=== PATIENT | female | born 1995 | race Caucasian/White ===

== ENCOUNTER 2021-04-12 15:56 | Emergency (ER) | payer MEDICAID ==
[2021-04-12] MEDS ORDERED: Sodium Chloride 0.9% 2.5 ML Syringe FLUSH PRN (18:02)
[2021-04-12] MEDS ORDERED: Sodium Chloride 0.9% 10 ML Syringe FLUSH PRN (18:02)
[2021-04-12] MEDS ORDERED: Ondansetron 4 MG/2 ML SDV IVPUSH ONE (18:03)
[2021-04-12] MEDS ORDERED: Sodium Chloride 0.9% 1,000 ML IV ONE (18:03)
--- NOTE | 2021-04-12 18:04 | EDM.PDOC ---
ED HPI GENERAL MEDICAL PROBLEM - General Chief Complaint: Respiratory Problem Stated Complaint: SOB, CHEST TIGHTNESS Time Seen by Provider: 04/12/21 17:48 Source of Information: Reports: Patient History Limitations: Reports: No Limitations - History of Present Illness INITIAL COMMENTS - FREE TEXT/NARRATIVE: HISTORY AND PHYSICAL: History of present illness: The patient is a 26-year-old female who is 34 weeks and positive with COVID-19. The patient was diagnosed on Wednesday with COVID-19. She has been taken nauseated. This afternoon she began to experience some chest tightness and is concerned that as to her unborn child. The patient states she has a low- lying placenta. The patient states she called her JOURNEYMAN PAINTER on-call and advised her to come to the emergency department. Patient denies any fever, chills, headache, change in vision, syncope or near syncope. Denies any chest pain, back pain, shortness of breath or cough. Denies any abdominal pain, nausea, vomiting, diarrhea, constipation or dysuria. Has not noted any blood in urine or stool. Patient has been eating and drinking appropriately. Review of systems: As per history of present illness and below otherwise all systems reviewed and negative. Past medical history: As per history of present illness and as reviewed below otherwise noncontributory. Surgical history: As per history of present illness and as reviewed below otherwise noncontributory. Social history: See social history for further information Family history: As per history of present illness and as reviewed below otherwise noncontributory. Physical exam: General: Well developed and well nourished. Alert and orientated x 3. Nontoxic in appearance and in no acute distress. Vital signs are stable and have been reviewed by me. Nursing notes were reviewed. HEENT: Atraumatic, normocephalic, pupils equal and reactive bilaterally, negative for conjunctival pallor or scleral icterus, mucous membranes moist, TMs normal bilaterally, throat clear, neck supple, nontender, trachea midline. No drooling or trismus noted. No meningeal signs. No hot potato voice noted. Lungs: Clear to auscultation bilaterally. No wheezes, rales, or rhonchi. Chest nontender. Normal work of breathing, no accessory muscles used. Heart: S1S2, regular rate and rhythm without overt murmur, gallops, or rubs. No JVD. No peripheral edema Abdomen: Soft, nondistended, nontender. Normoactive bowel sounds. Negative for masses or costovertebral tenderness. Skin: Intact, warm, dry. No lesions or rashes noted. Hematologic: No petechiae or purpra. Mucosa appropriate color and normal nail bed color and refill. Extremities: Atraumatic, moves all extremities per self without difficulty or deficits, negative for cords or calf pain. Neurovascular unremarkable. Neuro: Awake, alert, oriented. Cranial nerves II through XII unremarkable. Cerebellum unremarkable. Motor and sensory unremarkable throughout. Exam nonfocal. Psychiatric: Mood and affect are appropriate. Normal thought process. Answering questions appropriately. Notes: *This patient was seen and evaluated during the 2019 SARS-CoV-2 novel coronavirus pandemic period. Community viral transmission is ongoing at time of this encounter and the emergency department is operating under pandemic response procedures. As stated above the patient is a 26-year-old female who presents to the emergency department with complaints of fatigue and nausea since Wednesday. Patient is 34 weeks and was tested on Wednesday and found to be COVID-19 positive. She contacted her SYNTHETIC FILAMENT SPINNER who advised her to seek treatment in the emergency department. The patient states that movement has been normal. After examination I will order labs, in which x-ray. I will treat the patient with IV fluids. The patient is agreeable with this plan. The patient's chest x-ray. Impression: No acute cardiopulmonary process. I spoke with Dr. Skelton at [facility] regarding COVID-19 treatment for the patient. advised monoclonal antibodies. I conveyed this to the patient and she was going to think about it. The patient has agreed to the monoclonal antibodies. I have given the patient a fact sheet on the monoclonal antibodies. I have discussed the benefits with the patient. Obtain consent for the medical infusion. I have faxed to the walk-in clinic. I have talked with the patient about today's findings, in addition to providing specific details for plan of care. Reassessment at the time of disposition demonstrates that the patient is in no acute distress. The patient is stable for discharge, counseling was provided and we discussed in great detail signs and symptoms that would prompt them to return to the Emergency Department. Medication, follow up and supportive care measures were reviewed and discussed. Voices understanding and is agreeable to plan of care. Denies any further questions or concerns at this time. Diagnostics: CBC, CMP chest x-ray Therapeutics: IV fluids Impression: COVID-19 Plan: 1. You were evaluated today on an emergent basis. Your complaints of fatigue, and nausea was evaluated with a Covid 19 swab and it was positive. I spoke w ith the on-call SYNTHETIC FILAMENT SPINNER regarding the treatment for COVID-19 for you. Spoke to the SYNTHETIC FILAMENT SPINNER regarding your urine results and they stated they did not feel like this needed to be treated. They would like for you to take the monoclonal antibodies. I have sent the prescription for the outpatient to call you on Wednesday. I gave you the patient fax sheet and you gave your consent for this. As we talked about please treat your symptoms. Get plenty of fluids and food. Return to the emergency room if you start to get short of breath. Make sure that you get your portable oxygen saturation monitor. And just keep an eye on it. 2. You can alternate Tylenol and ibuprofen as needed for pain and fever management. 3. We encourage you to follow up with your primary care provider and/or recommended specialist in the next few days for re-evaluation and further care/management. 4. If your symptoms should worsen, new symptoms develop or any of the signs and symptoms we discussed should arise please return to the emergency room or call 911 (if needed). 5. Your COVID-19 screening is positive. That means you do have the coronavirus and you are considered contagious. Your vital signs and oxygen saturation are well enough that you were able to monitor your symptoms at home. Continue to monitor for trouble breathing, new confusion or inability to arouse, bluish lips or face or any of the other symptoms we discussed -if this occurs please return to the emergency room. 6. Please self quarantine until cleared by [facility] Department. Inform any persons that you have been in contact with since you started becoming symptomatic that you have tested positive; they should be made aware and take the appropriate steps as needed. 7. You can take NyQuil during the evening to help get a restful night sleep. May alternate Tylenol and ibuprofen as needed for pain and fever management. 8. The [facility] health department will be calling you and following up with you. The [place] COVID 19 Hotline phone number , They are open Wednesday - Wednesday 7am - 7pm. Follow up with your primary care provider for re-evaluation and re-testing after the 10 day quarantine and discuss when you should be seen. Definitive disposition and diagnosis as appropriate pending reevaluation and review of above. - Related Data Allergies Allergy/AdvReac Type Severity Reaction Status Date / Time Penicillins Allergy Hives Verified 04/12/21 16:50 Past Medical History - Past Health History Medical/Surgical History: Denies Medical/Surgical History - Infectious Disease History Infectious Disease History: Reports: None Social & Family History - Family History Family Medical History: No Pertinent Family History - Tobacco Use Tobacco Use Status *Q: Never Tobacco User Second Hand Smoke Exposure: No - Caffeine Use Caffeine Use: Reports: None, Coffee - Recreational Drug Use Recreational Drug Use: No ED ROS GENERAL - Review of Systems Review Of Systems: Comprehensive ROS is negative, except as noted in HPI. ED EXAM, GENERAL - Physical Exam Exam: See Below (See dictation) Course - Vital Signs Last Recorded V/S: Last Vital Signs Temp 97.9 F 04/12/21 19:58 Pulse 111 H 04/12/21 19:58 Resp 16 04/12/21 19:58 BP 143/90 H 04/12/21 19:58 Pulse Ox 100 04/12/21 19:58 - Orders/Labs/Meds Labs: Laboratory Tests 04/12/21 04/12/21 04/12/21 Range/Units 16:44 17:50 18:20 WBC 9.53 (4.0-11.0) K/uL RBC 4.35 (4.30-5.90) M/uL Hgb 11.2 L (12.0-16.0) g/dL Hct 33.8 L (36.0-46.0) % MCV 77.7 L (80.0-98.0) fL MCH 25.7 L (27.0-32.0) pg MCHC 33.1 (31.0-37.0) g/dL RDW Std Deviation 38.9 (28.0-62.0) fl RDW Coeff of Jg 14 (11.0-15.0) % Plt Count 181 (150-400) K/uL MPV 11.20 (7.40-12.00) fL Neut % (Auto) 85.9 H (48.0-80.0) % Lymph % (Auto) 7.0 L (16.0-40.0) % [place] % (Auto) 6.6 (0.0-15.0) % Eos % (Auto) 0.4 (0.0-7.0) % Baso % (Auto) 0.1 (0.0-1.5) % Neut # (Auto) 8.2 H (1.4-5.7) K/uL Lymph # (Auto) 0.7 (0.6-2.4) K/uL [place] # (Auto) 0.6 (0.0-0.8) K/uL Eos # (Auto) 0.0 (0.0-0.7) K/uL Baso # (Auto) 0.0 (0.0-0.1) K/uL Nucleated RBC % 0.0 /100WBC Nucleated RBCs # 0 K/uL Sodium (136-145) mmol/L Potassium (3.5-5.1) mmol/L Chloride (98-107) mmol/L Carbon Dioxide (21.0-32.0) mmol/L BUN (7.0-18.0) mg/dL Creatinine (0.6-1.0) mg/dL Est Cr Clr Drug Dosing mL/min Estimated GFR (MDRD) ml/min Glucose (74-106) mg/dL Calcium (8.5-10.1) mg/dL Total Bilirubin (0.2-1.0) mg/dL AST (15-37) IU/L ALT (14-63) IU/L Alkaline Phosphatase (46-116) U/L Total Protein (6.4-8.2) g/dL Albumin (3.4-5.0) g/dL Globulin (2.6-4.0) g/dL Albumin/Globulin Ratio (0.9-1.6) Urine Color YELLOW Urine Appearance HAZY Urine pH 7.0 (5.0-8.0) Ur Specific Blossom 1.010 (1.001-1.035) Urine Protein NEGATIVE (NEGATIVE) mg/dL Urine Glucose (UA) NEGATIVE (NEGATIVE) mg/dL Urine Ketones NEGATIVE (NEGATIVE) mg/dL Urine Occult Blood NEGATIVE (NEGATIVE) Urine Nitrite NEGATIVE (NEGATIVE) Urine Bilirubin NEGATIVE (NEGATIVE) Urine Urobilinogen 0.2 (<2.0) EU/dL Ur Leukocyte Esterase TRACE H (NEGATIVE) Urine RBC 0-2 (0-2/HPF) Urine WBC 2-4 (0-5/HPF) Ur Epithelial Cells FEW (NONE-FEW) Urine Bacteria 1+ H (NEGATIVE) Urine Mucus LIGHT (NONE-MOD) SARS-CoV-2 RNA (KEISHA) POSITIVE H (NEGATIVE) 04/12/21 Range/Units 18:20 WBC (4.0-11.0) K/uL RBC (4.30-5.90) M/uL Hgb (12.0-16.0) g/dL Hct (36.0-46.0) % MCV (80.0-98.0) fL MCH (27.0-32.0) pg MCHC (31.0-37.0) g/dL RDW Std Deviation (28.0-62.0) fl RDW Coeff of Jg (11.0-15.0) % Plt Count (150-400) K/uL MPV (7.40-12.00) fL Neut % (Auto) (48.0-80.0) % Lymph % (Auto) (16.0-40.0) % [place] % (Auto) (0.0-15.0) % Eos % (Auto) (0.0-7.0) % Baso % (Auto) (0.0-1.5) % Neut # (Auto) (1.4-5.7) K/uL Lymph # (Auto) (0.6-2.4) K/uL [place] # (Auto) (0.0-0.8) K/uL Eos # (Auto) (0.0-0.7) K/uL Baso # (Auto) (0.0-0.1) K/uL Nucleated RBC % /100WBC Nucleated RBCs # K/uL Sodium 136 (136-145) mmol/L Potassium 3.7 (3.5-5.1) mmol/L Chloride 101 (98-107) mmol/L Carbon Dioxide 23.5 (21.0-32.0) mmol/L BUN 6 L (7.0-18.0) mg/dL Creatinine 0.6 (0.6-1.0) mg/dL Est Cr Clr Drug Dosing 147.19 mL/min Estimated GFR (MDRD) > 60.0 ml/min Glucose 77 (74-106) mg/dL Calcium 8.3 L (8.5-10.1) mg/dL Total Bilirubin 0.3 (0.2-1.0) mg/dL AST 31 (15-37) IU/L ALT 66 H (14-63) IU/L Alkaline Phosphatase 136 H (46-116) U/L Total Protein 6.6 (6.4-8.2) g/dL Albumin 2.5 L (3.4-5.0) g/dL Globulin 4.1 H (2.6-4.0) g/dL Albumin/Globulin Ratio 0.6 L (0.9-1.6) Urine Color Urine Appearance Urine pH (5.0-8.0) Ur Specific Blossom (1.001-1.035) Urine Protein (NEGATIVE) mg/dL Urine Glucose (UA) (NEGATIVE) mg/dL Urine Ketones (NEGATIVE) mg/dL Urine Occult Blood (NEGATIVE) Urine Nitrite (NEGATIVE) Urine Bilirubin (NEGATIVE) Urine Urobilinogen (<2.0) EU/dL Ur Leukocyte Esterase (NEGATIVE) Urine RBC (0-2/HPF) Urine WBC (0-5/HPF) Ur Epithelial Cells (NONE-FEW) Urine Bacteria (NEGATIVE) Urine Mucus (NONE-MOD) SARS-CoV-2 RNA (KEISAH) (NEGATIVE) Meds: Medications Discontinued Medications Generic Name Dose Route Start Last Admin Trade Name Freq PRN Reason Stop Dose Admin Sodium Chloride 1,000 mls @ 999 mls/hr 04/12/21 18:03 04/12/21 18:24 Normal Saline IV 04/12/21 19:03 999 mls/hr .BOLUS ONE Administration Ondansetron HCl 4 mg 04/12/21 18:03 04/12/21 18:27 Ondansetron 4 Mg/2 Ml Sdv IVPUSH 04/12/21 18:04 Not Given ONETIME ONE Sodium Chloride 10 ml 04/12/21 18:02 Sodium Chloride 0.9% 10 Ml Syringe FLUSH ASDIRECTED PRN Keep Vein Open Sodium Chloride 2.5 ml 04/12/21 18:02 Sodium Chloride 0.9% 2.5 Ml Syringe FLUSH ASDIRECTED PRN Keep Vein Open Departure - Departure Time of Disposition: 19:33 Disposition: Home, Self-Care 01 Condition: Good Clinical Impression: COVID-19 - Discharge Information *PRESCRIPTION DRUG MONITORING PROGRAM REVIEWED*: Not Applicable *COPY OF PRESCRIPTION DRUG MONITORING REPORT IN PATIENT LICO: Not Applicable Instructions: Caring for Your Baby if You Have COVID-19 - CDC (07/29/2020), COVID-19: What to Do If You Are Sick- [facility] (09/18/2020) Referrals: Kristine Naranjo MD [Primary Care Provider] - Forms: ED Department Discharge Additional Instructions: The following information is given to patients seen in the emergency department who are being discharged to home. This information is to outline your options for follow-up care. We provide all patients seen in our emergency department with a follow-up referral. The need for follow-up, as well as the timing and circumstances, are variable depending upon the specifics of your emergency department visit. If you don't have a primary care physician on staff, we will provide you with a referral. We always advise you to contact your personal physician following an emergency department visit to inform them of the circumstance of the visit and for follow-up with them and/or the need for any referrals to a consulting specialist. The emergency department will also refer you to a specialist when appropriate. This referral assures that you have the opportunity for follow-up care with a specialist. All of these measure are taken in an effort to provide you with optimal care, which includes your follow-up. Under all circumstances we always encourage you to contact your private physician who remains a resource for coordinating your care. When calling for follow-up care, please make the office aware that this follow-up is from your recent emergency room visit. If for any reason you are refused follow-up, please contact the [facility] Emergency Department at and asked to speak to the emergency department charge nurse. [facility] - Primary Care [address] [place] [id number] [facility] [address] [place] [id number] Plan: 1. You were evaluated today on an emergent basis. Your complaints of fatigue, and nausea was evaluated with a Covid 19 swab and it was positive. I spoke with the on-call SYNTHETIC FILAMENT SPINNER regarding the treatment for COVID-19 for you. Spoke to the SYNTHETIC FILAMENT SPINNER regarding your urine results and they stated they did not feel like this needed to be treated. They would like for you to take the monoclonal antibodies. I have sent the prescription for the outpatient to call you on Wednesday. I gave you the patient fax sheet and you gave your consent for this. As we talked about please treat your symptoms. Get plenty of fluids and food. Return to the emergency room if you start to get short of breath. Make sure that you get your portable oxygen saturation monitor. And just keep an eye on it. 2. You can alternate Tylenol and ibuprofen as needed for pain and fever management. 3. We encourage you to follow up with your primary care provider and/or recommended specialist in the next few days for re-evaluation and further care/management. 4. If your symptoms should worsen, new symptoms develop or any of the signs and symptoms we discussed should arise please return to the emergency room or call 911 (if needed). 5. Your COVID-19 screening is positive. That means you do have the coronavirus and you are considered contagious. Your vital signs and oxygen saturation are well enough that you were able to monitor your symptoms at home. Continue to monitor for trouble breathing, new confusion or inability to arouse, bluish lips or face or any of the other symptoms we discussed -if this occurs please return to the emergency room. 6. Please self quarantine until cleared by [facility]. Inform any persons that you have been in contact with since you started becoming symptomatic that you have tested positive; they should be made aware and take the appropriate steps as needed. 7. You can take NyQuil during the evening to help get a restful night sleep. May alternate Tylenol and ibuprofen as needed for pain and fever management. 8. The [facility] health department will be calling you and following up with you. The [place] COVID 19 Hotline phone number , They are open Wednesday - Wednesday 7am - 7pm. Follow up with your primary care provider for re-evaluation and re-testing after the 10 day quarantine and discuss when you should be seen.
[2021-04-12 18:47] LABS: BLOOD UREA NITROGEN,BUN 6 mg/dL (7.0-18.0); CARBON DIOXIDE,CO2 23.5 mmol/L (21.0-32.0); CHLORIDE,CL 101 mmol/L (98-107); GLUCOSE RANDOM 77 mg/dL (74-106); POTASSIUM,K 3.7 mmol/L (3.5-5.1); SODIUM,NA 136 mmol/L (136-145)
--- NOTE | 2021-04-12 18:55 | CR ---
Indication: COVID positive. Technique: AP portable view of the chest. Comparison: None Findings: Heart normal size. The lungs are clear. No infiltrate, pleural effusion, or pneumothorax is identified. Impression: No acute cardiopulmonary process Dictated by Summer Walls MD @ 04/12/2021 6:53:13 PM (Electronically Signed)
--- NOTE | 2021-04-15 12:05 | PCM.EKG ---
#1 Interpretation EKG Interpretation Comments: EKG performed 04/12/2021 at 16:47 hours Sinus rhythm, Rate 97, W[place] 122 axis -20, QRS leftward axis and low voltage , ST and T normal, impression no acute abnromality
== END 2021-04-12 20:00 | disposition home or self-care (01) ==
LOC: MW.ED 15:56
DX: O98.513 Other viral diseases complicating pregnancy, third trimester (principal); U07.1 COVID-19; Z3A.34 34 weeks gestation of pregnancy; Z88.0 Allergy status to penicillin
CPT/HCPCS: 36415; 71045; 80053; 81001; 85025; 87635; 93005; 99285; J7030; U0002

== ENCOUNTER 2021-05-19 08:01 | Inpatient (IN) | payer MEDICAID ==
[~2021-05-19 08:01] MED LIST: Acetaminophen/oxyCODONE 325-5 MG Tab PO PRN; Albuterol 0.083% 2.5 MG/3 ML Neb Soln NEB PRN; HYDROmorphone 1 MG/ML Syringe IVPUSH PRN; Metoclopramide 10 MG/2 ML SDV IVPUSH PRN; Morphine 2 MG/ML SYRINGE IVPUSH PRN; Naloxone 0.4 MG/ML SDV IVPUSH PRN; Ondansetron 4 MG/2 ML SDV IVPUSH PRN; diphenhydrAMINE 50 MG/ML SDV IVPUSH PRN; fentaNYL 100 MCG/2 ML SDV IVPUSH PRN
[2021-05-19] MEDS ORDERED: Dexamethasone 4 MG/ML 5 ML MDV ONE (08:39)
[2021-05-19] MEDS ORDERED: Oxytocin 10 Units/1 ML SDV ONE (08:39)
[2021-05-19] MEDS ORDERED: Ondansetron 4 MG/2 ML SDV ONE ×2 (08:39→09:53)
[2021-05-19] MEDS ORDERED: fentaNYL 100 MCG/2 ML SDV ONE (08:40)
[2021-05-19] MEDS ORDERED: Morphine PF 10 MG/10 ML SDV ONE (08:40)
[2021-05-19] MEDS ORDERED: Ropivacaine 0.5% 5 MG/ML 30 ML SDV ONE (08:53)
[2021-05-19] MEDS ORDERED: Citric Acid/Sodium Citrate Solution 30 ML Cup PO ONE (09:01)
[2021-05-19] MEDS ORDERED: Sodium Chloride 0.9% 10 ML Syringe FLUSH PRN (09:01)
[2021-05-19] MEDS ORDERED: Sodium Chloride 0.9% 20 ML SDV IV PRN (09:01)
[2021-05-19] MEDS ORDERED: Sodium Chloride 0.9% 2.5 ML Syringe FLUSH PRN (09:01)
--- NOTE | 2021-05-19 09:12 | PCM.PREANE ---
Preanesthetic Assessment - Anesthesia/Transfusion/Family Hx Anesthesia History: Prior Anesthesia Without Reaction Transfusion History: No Prior Transfusion(s) - Review of Systems General: No Symptoms Pulmonary: No Symptoms Cardiovascular: No Symptoms Gastrointestinal: No Symptoms Neurological: No Symptoms Other: Reports: None - Physical Assessment NPO Status Date: 05/18/21 NPO Status Time: 23:30 Height: 5 ft 9 in Weight: 133.356 kg ASA Class: 3 Mental Status: Alert & Oriented x3 Airway Class: Mallampati = 2 Dentition: Reports: Normal Dentition Thyro-Mental Finger Breadths: 3 Mouth Opening Finger Breadths: 3 ROM/Head Extension: Full Lungs: Clear to Auscultation, Normal Respiratory Effort Cardiovascular: Regular Rate, Regular Rhythm - Lab Values: Laboratory Last Values WBC 12.77 K/uL (4.0-11.0) H 05/16/21 10:59 RBC 4.40 M/uL (4.30-5.90) 05/16/21 10:59 Hgb 11.2 g/dL (12.0-16.0) L 05/16/21 10:59 Hct 34.0 % (36.0-46.0) L 05/16/21 10:59 MCV 77.3 fL (80.0-98.0) L 05/16/21 10:59 MCH 25.5 pg (27.0-32.0) L 05/16/21 10:59 MCHC 32.9 g/dL (31.0-37.0) 05/16/21 10:59 RDW Std Deviation 41.3 fl (28.0-62.0) 05/16/21 10:59 RDW Coeff of Jg 15 % (11.0-15.0) 05/16/21 10:59 Plt Count 218 K/uL (150-400) 05/16/21 10:59 MPV 11.80 fL (7.40-12.00) 05/16/21 10:59 Nucleated RBC % 0.0 /100WBC 05/16/21 10:59 Nucleated RBCs # 0 K/uL 05/16/21 10:59 Blood Type AB POSITIVE 05/16/21 10:50 Antibody Screen NEGATIVE 05/16/21 10:50 - Allergies Allergies/Adverse Reactions: Allergies Allergy/AdvReac Type Severity Reaction Status Date / Time latex Allergy Rash Verified 05/15/21 08:41 Penicillins Allergy Hives Verified 05/15/21 08:41 - Anesthesia Plan Pre-Op Medication Ordered: None - Acknowledgements Anesthesia Type Planned: Spinal Pt an Appropriate Candidate for the Planned Anesthesia: Yes Alternatives and Risks of Anesthesia Discussed w Pt/Guardian: Yes Pt/Guardian Understands and Agrees with Anesthesia Plan: Yes PreAnesthesia Questionnaire - Past Health History Medical/Surgical History: Denies Medical/Surgical History HEENT History: Reports: Other (See Below) Other HEENT History: wears glasses Cardiovascular History: Reports: None Respiratory History: Reports: Asthma Gastrointestinal History: Reports: None Genitourinary History: Reports: None TOWER DIRECTOR History: Reports: , Spontaneous Musculoskeletal History: Reports: Fracture Other Musculoskeletal History: hx fx arm, wrist, toe and finger Neurological History: Reports: Seizure, Other (See Below) Other Neuro History: seizure at 14 y/o, none since Psychiatric History: Reports: None Endocrine/Metabolic History: Reports: Obesity/BMI 30+ Hematologic History: Reports: None Immunologic History: Reports: None Oncologic (Cancer) History: Reports: None Dermatologic History: Reports: None - Infectious Disease History Infectious Disease History: Reports: None Other Infectious Disease History: positive for COVID on 04/12/21 - Past Surgical History Head Surgeries/Procedures: Reports: None HEENT Surgical History: Reports: None Cardiovascular Surgical History: Reports: None Respiratory Surgical History: Reports: None GI Surgical History: Reports: None Female Surgical History: Reports: D&C, Other (See Below) Other Female Surgeries/Procedures: hysteroscopy with IUD removal Endocrine Surgical History: Reports: None Neurological Surgical History: Reports: None Musculoskeletal Surgical History: Reports: None Oncologic Surgical History: Reports: None Dermatological Surgical History: Reports: None - SUBSTANCE USE Tobacco Use Within Last Twelve Months: Cigarettes - HOME MEDS Home Medications: Home Meds Albuterol Sulfate [Albuterol Sulfate Hfa] 1 - 2 puff INH ASDIRECTED PRN 05/15/21 [History] Pnv No.95/Ferrous Fum/Folic AC [ Vitamin Tablet] 1 tab PO DAILY 05/15/21 [History] - CURRENT (IN HOUSE) MEDS Current Meds: Current Medications Albuterol (Albuterol 0.083% 2.5 Mg/3 Ml Neb Soln) 2.5 mg NEB ONETIME PRN PRN Reason: Wheezing Citric Acid/Sodium Citrate (Citric Acid/Sodium Citrate Solution 30 Ml Cup) 30 ml PO ONETIME ONE Stop: 05/19/21 09:02 Diphenhydramine HCl (Diphenhydramine 50 Mg/Ml Sdv) 12.5 mg IVPUSH Q2H PRN PRN Reason: Itching Droperidol (Droperidol 5 Mg/2 Ml Sdv) 0.625 mg IVPUSH ONETIME PRN PRN Reason: Nausea/Vomiting Fentanyl (Fentanyl 100 Mcg/2 Ml Sdv) 50 mcg IVPUSH Q5M PRN PRN Reason: Pain (mild 1-3) Fentanyl (Fentanyl 100 Mcg/2 Ml Sdv) 50 mcg IVPUSH Q15M PRN PRN Reason: Pain (severe 7-10) Hydromorphone HCl (Hydromorphone 1 Mg/Ml Syringe) 1 mg IVPUSH Q10M PRN PRN Reason: Pain (moderate 4-6) Lactated Ringer's (Ringers, Lactated) 1,000 mls @ 500 mls/hr IV BOLUS SONJA Oxytocin/Sodium Chloride (Oxytocin 30 Unit In Ns 0.9% 500 Ml Premix) 30 unit in 500 mls @ 250 mls/hr IV TITRATE SONJA Metoclopramide HCl (Metoclopramide 10 Mg/2 Ml Sdv) 10 mg IVPUSH ONETIME PRN PRN Reason: Nausea/Vomiting Morphine Sulfate (Morphine 2 Mg/Ml Syringe) 2 mg IVPUSH Q10M PRN PRN Reason: Pain (severe 7-10) Nalbuphine HCl (Nalbuphine 10 Mg/1 Ml Vial) 5 mg IVPUSH Q30M PRN PRN Reason: Itching Naloxone HCl (Naloxone 0.4 Mg/Ml Sdv) 0.1 mg IVPUSH ASDIRECTED PRN PRN Reason: Respiratory Depression Ondansetron HCl (Ondansetron 4 Mg/2 Ml Sdv) 4 mg IVPUSH ONETIME PRN PRN Reason: Nausea/Vomiting Ondansetron HCl (Ondansetron 4 Mg/2 Ml Sdv) 4 mg IVPUSH Q6H PRN PRN Reason: Nausea Oxycodone/Acetaminophen (Acetaminophen/Oxycodone 325-5 Mg Tab) 2 tab PO Q6H PRN PRN Reason: Pain (moderate 4-6) Sodium Chloride (Sodium Chloride 0.9% 10 Ml Syringe) 10 ml FLUSH ASDIRECTED PRN PRN Reason: Keep Vein Open Sodium Chloride (Sodium Chloride 0.9% 2.5 Ml Syringe) 2.5 ml FLUSH ASDIRECTED PRN PRN Reason: Keep Vein Open Sodium Chloride (Sodium Chloride 0.9% 20 Ml Sdv) 10 ml IV ASDIRECTED PRN PRN Reason: IV Use Discontinued Medications Dexamethasone (Dexamethasone 4 Mg/Ml 5 Ml Mdv) Confirm Administered Dose 20 mg .ROUTE .STK-MED ONE Stop: 05/19/21 08:40 Fentanyl (Fentanyl 100 Mcg/2 Ml Sdv) Confirm Administered Dose 100 mcg .ROUTE .STK-MED ONE Stop: 05/19/21 08:41 Miscellaneous Medication (Phenylephrine Hcl In 0.9% Nacl 1 Mg/10 Ml Syringe) Confirm Administered Dose 1 mg .ROUTE .STK-MED ONE Stop: 05/19/21 08:43 Morphine Sulfate (Morphine Pf 10 Mg/10 Ml Sdv) Confirm Administered Dose 10 mg .ROUTE .STK-MED ONE Stop: 05/19/21 08:41 Ondansetron HCl (Ondansetron 4 Mg/2 Ml Sdv) Confirm Administered Dose 4 mg .ROUTE .STK-MED ONE Stop: 05/19/21 08:40 Oxytocin (Oxytocin 10 Units/1 Ml Sdv) Confirm Administered Dose 30 unit .ROUTE .STK-MED ONE Stop: 05/19/21 08:40 Ropivacaine (Ropivacaine 0.5% 5 Mg/Ml 30 Ml Sdv) Confirm Administered Dose 60 ml .ROUTE .STK-MED ONE Stop: 05/19/21 08:54
[2021-05-19] MEDS ORDERED: Lactated Ringers 1,000 ML IV SCH (09:15)
[2021-05-19] MEDS ORDERED: Oxytocin/0.9 % Sodium Chloride 30 UNIT/500 ML BAG IV SCH (09:15)
[2021-05-19] MEDS ORDERED: Sodium Chloride 0.9% 20 ML ONE (09:44)
[2021-05-19] MEDS ORDERED: ePHEDrine 50 MG/ML SDV ONE (09:44)
[2021-05-19] MEDS ORDERED: diphenhydrAMINE 50 MG/ML SDV IVPUSH PRN (10:51)
[2021-05-19] MEDS ORDERED: Oxytocin 10 Units/1 ML SDV IM PRN (10:51)
[2021-05-19] MEDS ORDERED: Misoprostol 200 MCG Tab RECTAL PRN (10:51)
[2021-05-19] MEDS ORDERED: Acetaminophen/oxyCODONE 325-5 MG Tab PO PRN ×2 (10:51)
[2021-05-19] MEDS ORDERED: Bisacodyl 10 MG Supp RECTAL PRN (10:51)
[2021-05-19] MEDS ORDERED: Lanolin 100% Cream 7 GM Tube TOP PRN (10:51)
[2021-05-19] MEDS ORDERED: Methylergonovine 0.2 MG/1 ML Amp IM PRN (10:51)
[2021-05-19] MEDS ORDERED: Tranexamic Acid 1,000 MG in Sodium Chloride 0.9% 100 ML IV PRN (10:51)
[2021-05-19] MEDS ORDERED: Ondansetron 4 MG/2 ML SDV IVPUSH PRN (10:51)
--- NOTE | 2021-05-19 10:59 | PCM.OPNOTE ---
- General Post-Op/Procedure Note Date of Surgery/Procedure: 05/19/21 Operative Procedure(s): Primary lower transverse section Findings: Normal appearing female in cephalic presentation. Clear amniotic fluid. APGARs 8/8. Weight 3670g. Normal appearing uterus, fallopian tubes and ovaries. Left, lateral fascial hernia. Pre Op Diagnosis: 1. TIUP at 39w2d gestation. 2. Low-lying placenta. 3. Morbid obesity. 4. COVID-19 infection during Post-Op Diagnosis: 1. TIUP at 39w2d gestation. 2. Low-lying placenta. 3. Morbid obesity. 4. COVID-19 infection during . 5. Left, lateral fascial hernia Anesthesia Technique: Spinal Primary Surgeon: Kristine Naranjo Anesthesia Provider: Bredna Loya Credit Interviewer: Shital Johns Reason Credit Interviewer Was Necessary: Maternal morbid obesity Pathology: Hernia sack Fluid Replacement, Intraop: 2,000 Output, Urine Amount: 50 (clear urine at end of procedure) EBL in mLs: 600 Drain/Tube Comments:: CHERI dressing Complications: None known Condition: Good Free Text/Narrative:: Dictation #[id number]
[2021-05-19] MEDS ORDERED: Oxytocin/Lactated Ringers 30 UNIT/500 ML BAG IV SCH (11:00)
[2021-05-19] MEDS: Lactated Ringers 1,000 ML IV SCH ×2 (11:10→18:10)
--- NOTE | 2021-05-19 11:10 | PCM.POSTAN ---
POST ANESTHESIA ASSESSMENT - MENTAL STATUS Mental Status: Alert, Oriented - RESPIRATORY Respiratory Status: Respiratory Rate WNL, Airway Patent, O2 Saturation Stable - CARDIOVASCULAR CV Status: Pulse Rate WNL, Blood Pressure Stable - GASTROINTESTINAL GI Status: No Symptoms - POST OP HYDRATION Hydration Status: Adequate & Stable
--- NOTE | 2021-05-19 11:11 | PCM48HPAN ---
Post Anesthesia Note - EVALUATION WITHIN 48HRS OF ANESTHETIC Vital Signs in Normal Range: Yes Patient Participated in Evaluation: Yes Respiratory Function Stable: Yes Airway Patent: Yes Cardiovascular Function Stable: Yes Hydration Status Stable: Yes Pain Control Satisfactory: Yes Nausea and Vomiting Control Satisfactory: Yes Mental Status Recovered: Yes
--- NOTE | 2021-05-19 11:13 | PCM.SN.2 ---
- Free Text/Narrative Note: Anesthesia Start:1102 Anesthesia Stop: 1105 After informed consent and a block time out, a 100mm 21g needle was used under ultrasound guidance to place bilateral TAPS blocks for p[ost op analgesia. 40cc 0.5% Naropin was used (20cc per side) No complications. Antonio Donahue MD
[2021-05-19] MEDS: Ketorolac 30 MG/ML SDV IVPUSH SCH ×3 (11:40→22:59)
[2021-05-19] MEDS ORDERED: Nalbuphine 10 MG/1 ML Vial ONE ×2 (11:43→15:48)
[2021-05-19] MEDS: Nalbuphine 10 MG/1 ML Vial IVPUSH PRN ×2 (11:44→16:06)
--- NOTE | 2021-05-19 13:55 | PCM.SN.2 ---
- Free Text/Narrative Note: Called by nursing staff at 1230 to report patient had increased blood loss with recent fundal check. 478cc weighed blood loss post- section per nurse. Continued to have small trickle of blood loss. VSS, afebrile. Instructed nurse to administer second bag of IV Pitocin and IM Methergine with plans to reassess in 20 minutes. I received a second call approximately 40 minutes later with nurse reporting patient had approximately 100cc of additional weighed blood loss despite medical therapy. I then ordered rectal Cytotec 600mcg along with stat H&H and 2mg IV morphine for pain management during MEU. Upon my arrival to patient's room, vital signs remained stable. Rectal Cytotec placed without difficulty. Small trickle of dark red blood noted with fundal massage. However, no bleeding following the massage. Uterine fundus is firm and located 1 finger breadth below the umbilicus. MEU performed and an egg sized blood clot was removed from the lower uterine segment. Clot weight of 86cc for a total of 1349cc EBL including intraoperative blood loss. Patient tolerated well. Will continue to monitor closely and await blood work for further management.
[2021-05-19] MEDS ORDERED: Metoclopramide 10 MG/2 ML SDV IVPUSH PRN (17:07)
--- NOTE | 2021-05-19 18:41 | OR ---
SURGEON: KRISTINE SHERIDAN MD DATE OF PROCEDURE: 05/19/2021 PREOPERATIVE DIAGNOSES: 1. Term intrauterine at 39 weeks and 2 days' gestation. 2. Low-lying placenta. 3. Morbid obesity. 4. COVID-19 infection during . POSTOPERATIVE DIAGNOSES: 1. Term intrauterine at 39 weeks and 2 days' gestation. 2. Low-lying placenta. 3. Morbid obesity. 4. COVID-19 infection during . 5. Left lateral fascial hernia. PROCEDURE: Primary lower transverse section. PRIMARY SURGEON: Kritsine Sheridan MD. CHILDBIRTH EDUCATOR: Shital Johns MD. ANESTHESIOLOGIST: Suzy Bolden CRNA. ANESTHESIA: Spinal epidural. COMPLICATIONS: None known. EBL: 600 mL. IV FLUIDS: 2000 mL of crystalloid. URINE OUTPUT: 50 mL of clear urine at the end of the procedure. INDICATIONS: The patient is a 26-year-old 3, para 1, at 39 weeks 2 days' gestation with a known history of low-lying placenta. FINDINGS: Normal-appearing female infant in cephalic presentation. Clear amniotic fluid. scores, 8 and 8. Weight 3670 g. Normal-appearing uterus, fallopian tubes, and ovaries. Left lateral fascial hernia. PROCEDURE IN DETAIL: The patient was taken to the operating room, where epidural anesthesia was found to be adequate. She was prepped and draped in the normal sterile fashion in a dorsal supine position with leftward tilt. A skin incision made with scalpel and carried down to the underlying layer of fascia, which was incised in the midline. The fascial incision was then extended laterally with Munguia scissors bilaterally. The superior aspect of the fascial incision was then grasped with Dillan clamps, elevated, and dissected upwards with Mayos. The inferior aspect of the fascial incision was then grasped with Dillan's in a likewise manner, was elevated and dissected off with Mayos. The peritoneum was then entered digitally and extended with good visualization of the bladder, and a large Obi O ring was then inserted into the peritoneal cavity to assist with retraction. The vesicouterine peritoneum was then identified, grasped with pickups, and entered sharp with Metzenbaum scissors. A bladder flap was then created digitally. A uterine incision was then created in a transverse fashion in the lower uterine segment with scalpel and extended digitally. Amniotic sac was artificially ruptured with Allis clamp. Clear fluid was noted. The 's head delivered atraumatically. A tight nuchal was noted x2 and reduced. Remainder of the infant's body delivered shortly thereafter. Nose and mouth were then suctioned with bulb. Cord was clamped and cut, and the infant handed off to the awaiting nursing staff. Arterial, venous, and cord blood gases were then obtained. The placenta was then expressed and the uterus exteriorized from the abdomen and cleared of all clots and debris. The uterine incision was then repaired in a running locked fashion with 0 Vicryl. A second suture was used of 0 Monocryl for imbrication of the incision. Excellent hemostasis was noted. The uterus was then returned to the abdomen. Gutters were cleared of all clots and debris. The peritoneum was then closed in a running fashion with 3-0 Vicryl. A left lateral hernia was noted to be protruding through the left lateral fascia layer. Adipose tissue was reduced from the hernia sac. This was clamped with hemostats, and the adipose tissue was removed with cautery. The base of the adipose tissue was then suture ligated. The hernia sac was then also clamped with hemostats and removed with cautery. The base of the sac was then suture ligated together. The fascial incision was then repaired in a running fashion with 0 Vicryl. The incision was irrigated and hemostasis assured. Subcutaneous tissue was closed with 2-0 plain gut, and the skin was closed with 3-0 Monocryl on a Jose needle. A CHERI vacuum dressing was then applied to the incision. Sponge, lap, and needle count were correct x2. Prophylactic antibiotics were given prior to procedure. The patient was taken to recovery in stable condition. RIZWAN / JUANCHO /[id number]
[2021-05-19] MEDS: Docusate Sodium 100 MG Cap PO SCH (22:59)
[2021-05-20] MEDS: Lactated Ringers 1,000 ML IV SCH (02:15)
[2021-05-20] MEDS: Ketorolac 30 MG/ML SDV IVPUSH SCH ×2 (05:09→11:14)
--- NOTE | 2021-05-20 08:46 | PCM.PNPP ---
- General Info Date of Service: 05/20/21 Subjective Update: Patient seen at bedside , she has good pain control , she is ambulating , denise removed 5am - yet to void Functional Status: Reports: Pain Controlled, Tolerating Diet, Ambulating - Review of Systems General: Reports: No Symptoms HEENT: Reports: No Symptoms Pulmonary: Reports: No Symptoms Cardiovascular: Reports: No Symptoms Gastrointestinal: Reports: No Symptoms Genitourinary: Reports: No Symptoms Musculoskeletal: Reports: No Symptoms Skin: Reports: No Symptoms Neurological: Reports: No Symptoms Psychiatric: Reports: No Symptoms - General Info Date of Service: 05/20/21 - Patient Data Vital Signs - Most Recent: Last Vital Signs Temp 36.1 C 05/20/21 07:30 Pulse 74 05/20/21 07:30 Resp 18 05/20/21 07:30 BP 113/76 05/20/21 07:30 Pulse Ox 97 05/20/21 07:30 Weight - Most Recent: 133.81 kg I&O - Last 24 Hours: Intake & Output 05/19/21 05/20/21 05/20/21 22:59 06:59 14:59 Intake Total 840 1252 Output Total 2244 2043 Balance -1404 -791 Lab Results - Last 24 Hours: Laboratory Results - last 24 hr 05/19/21 05/19/21 05/19/21 Range/Units 08:52 08:52 14:53 WBC 14.84 H 24.07 H (4.0-11.0) K/uL RBC 4.58 4.49 (4.30-5.90) M/uL Hgb 11.4 L 11.2 L (12.0-16.0) g/dL Hct 34.7 L 34.6 L (36.0-46.0) % MCV 75.8 L 77.1 L (80.0-98.0) fL MCH 24.9 L 24.9 L (27.0-32.0) pg MCHC 32.9 32.4 (31.0-37.0) g/dL RDW Std Deviation 40.5 41.7 (28.0-62.0) fl RDW Coeff of Jg 15 15 (11.0-15.0) % Plt Count 196 214 (150-400) K/uL MPV 11.80 12.00 (7.40-12.00) fL Nucleated RBC % 0.0 0.0 /100WBC Nucleated RBCs # 0 0 K/uL INR Fibrinogen (215-411) mg/dL Blood Type AB POSITIVE Antibody Screen NEGATIVE 05/19/21 05/20/21 Range/Units 14:53 05:10 WBC (4.0-11.0) K/uL RBC (4.30-5.90) M/uL Hgb 9.2 L (12.0-16.0) g/dL Hct 27.8 L (36.0-46.0) % MCV (80.0-98.0) fL MCH (27.0-32.0) pg MCHC (31.0-37.0) g/dL RDW Std Deviation (28.0-62.0) fl RDW Coeff of Jg (11.0-15.0) % Plt Count (150-400) K/uL MPV (7.40-12.00) fL Nucleated RBC % /100WBC Nucleated RBCs # K/uL INR 0.89 Fibrinogen 598 H (215-411) mg/dL Blood Type Antibody Screen Med Orders - Current: Current Medications Albuterol (Albuterol 0.083% 2.5 Mg/3 Ml Neb Soln) 2.5 mg NEB ONETIME PRN PRN Reason: Wheezing Bisacodyl (Bisacodyl 10 Mg Supp) 10 mg RECTAL ONETIME PRN PRN Reason: Constipation Diphenhydramine HCl (Diphenhydramine 50 Mg/Ml Sdv) 12.5 mg IVPUSH Q2H PRN PRN Reason: Itching Diphenhydramine HCl (Diphenhydramine 50 Mg/Ml Sdv) 25 mg IVPUSH Q6H PRN PRN Reason: Itching or Nausea Docusate Sodium (Docusate Sodium 100 Mg Cap) 100 mg PO BID SONJA Last Admin: 05/19/21 22:59 Dose: Not Given Documented by: Droperidol (Droperidol 5 Mg/2 Ml Sdv) 0.625 mg IVPUSH ONETIME PRN PRN Reason: Nausea/Vomiting Emollient Ointment (Lanolin 100% Cream 7 Gm Tube) 0 gm TOP ASDIRECTED PRN PRN Reason: Sore Nipples Last Admin: 05/20/21 05:09 Dose: 1 applic Documented by: Fentanyl (Fentanyl 100 Mcg/2 Ml Sdv) 50 mcg IVPUSH Q5M PRN PRN Reason: Pain (mild 1-3) Fentanyl (Fentanyl 100 Mcg/2 Ml Sdv) 50 mcg IVPUSH Q15M PRN PRN Reason: Pain (severe 7-10) Gentamicin Sulfate (Pharmacy To Dose - Gentamicin) 1 dose .XX ASDIRECTED [facility] Hydromorphone HCl (Hydromorphone 1 Mg/Ml Syringe) 1 mg IVPUSH Q10M PRN PRN Reason: Pain (moderate 4-6) Lactated Ringer's (Ringers, Lactated) 1,000 mls @ 500 mls/hr IV BOLUS [facility] Last Admin: 05/19/21 08:55 Dose: 999 mls/hr Documented by: Oxytocin/Sodium Chloride (Oxytocin 30 Unit In Ns 0.9% 500 Ml Premix) 30 unit in 500 mls @ 250 mls/hr IV TITRATE [facility] Last Admin: 05/19/21 12:35 Dose: 500 mls/hr Documented by: Lactated Ringer's (Ringers, Lactated) 1,000 mls @ 125 mls/hr IV ASDIRECTED [facility] Last Admin: 05/20/21 02:15 Dose: 125 mls/hr Documented by: Oxytocin/Lactated Ringer's (Pitocin In Lr 30 Units/500 Ml) 30 unit in 500 mls @ 125 mls/hr IV TITRATE [facility]; Protocol Tranexamic Acid 1,000 mg/ (Sodium Chloride) 110 mls @ 660 mls/hr IV ONETIME PRN PRN Reason: Bleeding Ibuprofen (Ibuprofen 800 Mg Tab) 800 mg PO Q8H PRN PRN Reason: Cramping Ketorolac Tromethamine (Ketorolac 30 Mg/Ml Sdv) 30 mg IVPUSH Q6H [facility] Stop: 05/20/21 11:01 Last Admin: 05/20/21 05:09 Dose: 30 mg Documented by: Methylergonovine Maleate (Methylergonovine 0.2 Mg/1 Ml Amp) 0.2 mg IM ONETIME PRN PRN Reason: Excessive Vaginal Bleeding Last Admin: 05/19/21 12:36 Dose: 0.2 mg Documented by: Metoclopramide HCl (Metoclopramide 10 Mg/2 Ml Sdv) 10 mg IVPUSH ONETIME PRN PRN Reason: Nausea/Vomiting Metoclopramide HCl (Metoclopramide 10 Mg/2 Ml Sdv) 10 mg IVPUSH Q8H PRN PRN Reason: Nausea/Vomiting Last Admin: 05/19/21 17:27 Dose: 10 mg Documented by: Misoprostol (Misoprostol 200 Mcg Tab) 1,000 mcg RECTAL ONETIME PRN PRN Reason: excessive bleeding Last Admin: 05/19/21 13:34 Dose: 600 mcg Documented by: Morphine Sulfate (Morphine 2 Mg/Ml Syringe) 2 mg IVPUSH Q10M PRN PRN Reason: Pain (severe 7-10) Naloxone HCl (Naloxone 0.4 Mg/Ml Sdv) 0.1 mg IVPUSH ASDIRECTED PRN PRN Reason: Respiratory Depression Ondansetron HCl (Ondansetron 4 Mg/2 Ml Sdv) 4 mg IVPUSH ONETIME PRN PRN Reason: Nausea/Vomiting Ondansetron HCl (Ondansetron 4 Mg/2 Ml Sdv) 4 mg IVPUSH Q6H PRN PRN Reason: Nausea Ondansetron HCl (Ondansetron 4 Mg/2 Ml Sdv) 4 mg IVPUSH Q4H PRN PRN Reason: Nausea/Vomiting Last Admin: 05/19/21 16:05 Dose: 4 mg Documented by: Oxycodone/Acetaminophen (Acetaminophen/Oxycodone 325-5 Mg Tab) 2 tab PO Q6H PRN PRN Reason: Pain (moderate 4-6) Oxycodone/Acetaminophen (Acetaminophen/Oxycodone 325-5 Mg Tab) 1 tab PO Q4H PRN PRN Reason: Pain (severe 7-10) Oxycodone/Acetaminophen (Acetaminophen/Oxycodone 325-5 Mg Tab) 2 tab PO Q4H PRN PRN Reason: Pain (severe 7-10) Oxytocin (Oxytocin 10 Units/1 Ml Sdv) 10 unit IM ASDIRECTED PRN PRN Reason: Excessive Vaginal Bleeding Sodium Chloride (Sodium Chloride 0.9% 10 Ml Syringe) 10 ml FLUSH ASDIRECTED PRN PRN Reason: Keep Vein Open Sodium Chloride (Sodium Chloride 0.9% 2.5 Ml Syringe) 2.5 ml FLUSH ASDIRECTED PRN PRN Reason: Keep Vein Open Sodium Chloride (Sodium Chloride 0.9% 20 Ml Sdv) 10 ml IV ASDIRECTED PRN PRN Reason: IV Use Discontinued Medications Citric Acid/Sodium Citrate (Citric Acid/Sodium Citrate Solution 30 Ml Cup) 30 ml PO ONETIME ONE Stop: 05/19/21 09:02 Last Admin: 05/19/21 18:03 Dose: Not Given Documented by: Dexamethasone (Dexamethasone 4 Mg/Ml 5 Ml Mdv) Confirm Administered Dose 20 mg .ROUTE .STK-MED ONE Stop: 05/19/21 08:40 Ephedrine Sulfate (Ephedrine 50 Mg/Ml Sdv) Confirm Administered Dose 50 mg .ROUTE .STK-MED ONE Stop: 05/19/21 09:45 Fentanyl (Fentanyl 100 Mcg/2 Ml Sdv) Confirm Administered Dose 100 mcg .ROUTE .STK-MED ONE Stop: 05/19/21 08:41 Gentamicin Sulfate 465 mg/ (Sodium Chloride) 111.625 mls @ 223.25 mls/hr IV ONETIME ONE Stop: 05/19/21 10:14 Last Admin: 05/19/21 18:03 Dose: Not Given Documented by: Sodium Chloride (Normal Saline) Confirm Administered Dose 20 mls @ as directed .ROUTE .STK-MED ONE Stop: 05/19/21 09:45 Miscellaneous Medication (Phenylephrine Hcl In 0.9% Nacl 1 Mg/10 Ml Syringe) Confirm Administered Dose 1 mg .ROUTE .STK-MED ONE Stop: 05/19/21 08:43 Morphine Sulfate (Morphine Pf 10 Mg/10 Ml Sdv) Confirm Administered Dose 10 mg .ROUTE .STK-MED ONE Stop: 05/19/21 08:41 Nalbuphine HCl (Nalbuphine 10 Mg/1 Ml Vial) 5 mg IVPUSH Q30M PRN PRN Reason: Itching Last Admin: 05/19/21 16:06 Dose: 5 mg Documented by: Nalbuphine HCl (Nalbuphine 10 Mg/1 Ml Vial) Confirm Administered Dose 10 mg .ROUTE .STK-MED ONE Stop: 05/19/21 11:44 Last Admin: 05/19/21 13:56 Dose: Not Given Documented by: Nalbuphine HCl (Nalbuphine 10 Mg/1 Ml Vial) Confirm Administered Dose 10 mg .ROUTE .STK-MED ONE Stop: 05/19/21 15:49 Last Admin: 05/19/21 17:14 Dose: Not Given Documented by: Ondansetron HCl (Ondansetron 4 Mg/2 Ml Sdv) Confirm Administered Dose 4 mg .ROUTE .STK-MED ONE Stop: 05/19/21 08:40 Ondansetron HCl (Ondansetron 4 Mg/2 Ml Sdv) Confirm Administered Dose 4 mg .ROUTE .STK-MED ONE Stop: 05/19/21 09:54 Oxytocin (Oxytocin 10 Units/1 Ml Sdv) Confirm Administered Dose 30 unit .ROUTE .STK-MED ONE Stop: 05/19/21 08:40 Ropivacaine (Ropivacaine 0.5% 5 Mg/Ml 30 Ml Sdv) Confirm Administered Dose 60 ml .ROUTE .STK-MED ONE Stop: 05/19/21 08:54 - Interaction Support Person: Significant Other - Recovery Exam Fundal Tone: Firm Fundal Level: 3 Fingerbreadths Below Umbilicus Fundal Placement: Midline Lochia Amount: Scant Lochia Color: Rubra/Red Perineum Description: Intact, Minimal Bruising/Swelling Episiotomy/Laceration: None Bladder Status: Indwelling Catheter in Place Urinary Elimination: Other (see below) Other Urinary Elimination, : due to void - Exam General: Alert HEENT: Pupils Equal Neck: Supple Lungs: Clear to Auscultation, Normal Respiratory Effort Cardiovascular: Regular Rate, Regular Rhythm GI/Abdominal Exam: Normal Bowel Sounds (Wound dressing ( CHERI) C/d/I ) Extremities: Normal Inspection Wound/Incisions: Dressing Dry and Intact Neurological: No New Focal Deficit Psy/Mental Status: Alert - Problem List & Annotations (1) delivery delivered SNOMED Code(s): 360859270 Code(s): O82 - ENCOUNTER FOR DELIVERY WITHOUT INDICATION Status: Acute Current Visit: Yes - Problem List Review Problem List Initiated/Reviewed/Updated: Yes - My Orders Last 24 Hours: My Active Orders 05/19/21 17:07 Metoclopramide [Reglan] 10 mg IVPUSH Q8H PRN - Assessment Assessment:: 26yo P2 s/p Primary for Low lying placenta . POD1 stable PPH after - resolved Anemia - asymptomatic - Plan Plan:: Pain control as needed vitamins with Iron Incentive spirometry Denise out -follow void Regular diet SCDs Anticipate discharge tomorrow
[2021-05-20] MEDS: Prenatal Multivitamin with Calcium/Folic Acid/Iron Tab PO SCH (09:19)
[2021-05-20] MEDS: Docusate Sodium 100 MG Cap PO SCH ×2 (09:19→21:11)
[2021-05-20] MEDS: Ibuprofen 800 MG Tab PO PRN (18:13)
[2021-05-21] MEDS: Ibuprofen 800 MG Tab PO PRN ×3 (04:39→21:07)
--- NOTE | 2021-05-21 08:26 | PCM.PNPP ---
- General Info Date of Service: 05/21/21 Subjective Update: Patient resting in bed during rounds, baby nursing this morning. Ambulating and voiding without difficulty. Tolerating regular diet. Lochia decreasing. - General Info Date of Service: 05/21/21 - Patient Data Vital Signs - Most Recent: Last Vital Signs Temp 96.9 F 05/21/21 07:55 Pulse 76 05/21/21 07:55 Resp 18 05/21/21 07:55 BP 124/64 05/21/21 07:55 Pulse Ox 96 05/21/21 07:55 Weight - Most Recent: 295 lb Med Orders - Current: Current Medications Albuterol (Albuterol 0.083% 2.5 Mg/3 Ml Neb Soln) 2.5 mg NEB ONETIME PRN PRN Reason: Wheezing Bisacodyl (Bisacodyl 10 Mg Supp) 10 mg RECTAL ONETIME PRN PRN Reason: Constipation Diphenhydramine HCl (Diphenhydramine 50 Mg/Ml Sdv) 12.5 mg IVPUSH Q2H PRN PRN Reason: Itching Diphenhydramine HCl (Diphenhydramine 50 Mg/Ml Sdv) 25 mg IVPUSH Q6H PRN PRN Reason: Itching or Nausea Docusate Sodium (Docusate Sodium 100 Mg Cap) 100 mg PO BID [facility] Last Admin: 05/20/21 21:11 Dose: 100 mg Documented by: Droperidol (Droperidol 5 Mg/2 Ml Sdv) 0.625 mg IVPUSH ONETIME PRN PRN Reason: Nausea/Vomiting Emollient Ointment (Lanolin 100% Cream 7 Gm Tube) 0 gm TOP ASDIRECTED PRN PRN Reason: Sore Nipples Last Admin: 05/20/21 05:09 Dose: 1 applic Documented by: Fentanyl (Fentanyl 100 Mcg/2 Ml Sdv) 50 mcg IVPUSH Q5M PRN PRN Reason: Pain (mild 1-3) Fentanyl (Fentanyl 100 Mcg/2 Ml Sdv) 50 mcg IVPUSH Q15M PRN PRN Reason: Pain (severe 7-10) Gentamicin Sulfate (Pharmacy To Dose - Gentamicin) 1 dose .XX ASDIRECTED [facility] Hydromorphone HCl (Hydromorphone 1 Mg/Ml Syringe) 1 mg IVPUSH Q10M PRN PRN Reason: Pain (moderate 4-6) Lactated Ringer's (Ringers, Lactated) 1,000 mls @ 500 mls/hr IV BOLUS [facility] Last Admin: 05/19/21 08:55 Dose: 999 mls/hr Documented by: Oxytocin/Sodium Chloride (Oxytocin 30 Unit In Ns 0.9% 500 Ml Premix) 30 unit in 500 mls @ 250 mls/hr IV TITRATE [facility] Last Admin: 05/19/21 12:35 Dose: 500 mls/hr Documented by: Lactated Ringer's (Ringers, Lactated) 1,000 mls @ 125 mls/hr IV ASDIRECTED [facility] Last Admin: 05/20/21 02:15 Dose: 125 mls/hr Documented by: Oxytocin/Lactated Ringer's (Pitocin In Lr 30 Units/500 Ml) 30 unit in 500 mls @ 125 mls/hr IV TITRATE [facility]; Protocol Tranexamic Acid 1,000 mg/ (Sodium Chloride) 110 mls @ 660 mls/hr IV ONETIME PRN PRN Reason: Bleeding Ibuprofen (Ibuprofen 800 Mg Tab) 800 mg PO Q8H PRN PRN Reason: Cramping Last Admin: 05/21/21 04:39 Dose: 800 mg Documented by: Methylergonovine Maleate (Methylergonovine 0.2 Mg/1 Ml Amp) 0.2 mg IM ONETIME PRN PRN Reason: Excessive Vaginal Bleeding Last Admin: 05/19/21 12:36 Dose: 0.2 mg Documented by: Metoclopramide HCl (Metoclopramide 10 Mg/2 Ml Sdv) 10 mg IVPUSH ONETIME PRN PRN Reason: Nausea/Vomiting Metoclopramide HCl (Metoclopramide 10 Mg/2 Ml Sdv) 10 mg IVPUSH Q8H PRN PRN Reason: Nausea/Vomiting Last Admin: 05/19/21 17:27 Dose: 10 mg Documented by: Misoprostol (Misoprostol 200 Mcg Tab) 1,000 mcg RECTAL ONETIME PRN PRN Reason: excessive bleeding Last Admin: 05/19/21 13:34 Dose: 600 mcg Documented by: Morphine Sulfate (Morphine 2 Mg/Ml Syringe) 2 mg IVPUSH Q10M PRN PRN Reason: Pain (severe 7-10) Naloxone HCl (Naloxone 0.4 Mg/Ml Sdv) 0.1 mg IVPUSH ASDIRECTED PRN PRN Reason: Respiratory Depression Ondansetron HCl (Ondansetron 4 Mg/2 Ml Sdv) 4 mg IVPUSH ONETIME PRN PRN Reason: Nausea/Vomiting Ondansetron HCl (Ondansetron 4 Mg/2 Ml Sdv) 4 mg IVPUSH Q6H PRN PRN Reason: Nausea Ondansetron HCl (Ondansetron 4 Mg/2 Ml Sdv) 4 mg IVPUSH Q4H PRN PRN Reason: Nausea/Vomiting Last Admin: 05/19/21 16:05 Dose: 4 mg Documented by: Oxycodone/Acetaminophen (Acetaminophen/Oxycodone 325-5 Mg Tab) 2 tab PO Q6H PRN PRN Reason: Pain (moderate 4-6) Oxycodone/Acetaminophen (Acetaminophen/Oxycodone 325-5 Mg Tab) 1 tab PO Q4H PRN PRN Reason: Pain (severe 7-10) Oxycodone/Acetaminophen (Acetaminophen/Oxycodone 325-5 Mg Tab) 2 tab PO Q4H PRN PRN Reason: Pain (severe 7-10) Oxytocin (Oxytocin 10 Units/1 Ml Sdv) 10 unit IM ASDIRECTED PRN PRN Reason: Excessive Vaginal Bleeding Prenat Multivit/Operations Welder/Iron/Folic Ac ( Multivitamin With Calcium/Folic Acid/Iron Tab) 1 each PO DAILY [facility] Last Admin: 05/20/21 09:19 Dose: 1 each Documented by: Sodium Chloride (Sodium Chloride 0.9% 10 Ml Syringe) 10 ml FLUSH ASDIRECTED PRN PRN Reason: Keep Vein Open Sodium Chloride (Sodium Chloride 0.9% 2.5 Ml Syringe) 2.5 ml FLUSH ASDIRECTED PRN PRN Reason: Keep Vein Open Sodium Chloride (Sodium Chloride 0.9% 20 Ml Sdv) 10 ml IV ASDIRECTED PRN PRN Reason: IV Use Discontinued Medications Citric Acid/Sodium Citrate (Citric Acid/Sodium Citrate Solution 30 Ml Cup) 30 ml PO ONETIME ONE Stop: 05/19/21 09:02 Last Admin: 05/19/21 18:03 Dose: Not Given Documented by: Dexamethasone (Dexamethasone 4 Mg/Ml 5 Ml Mdv) Confirm Administered Dose 20 mg .ROUTE .STK-MED ONE Stop: 05/19/21 08:40 Ephedrine Sulfate (Ephedrine 50 Mg/Ml Sdv) Confirm Administered Dose 50 mg .ROUTE .STK-MED ONE Stop: 05/19/21 09:45 Fentanyl (Fentanyl 100 Mcg/2 Ml Sdv) Confirm Administered Dose 100 mcg .ROUTE .STK-MED ONE Stop: 05/19/21 08:41 Gentamicin Sulfate 465 mg/ (Sodium Chloride) 111.625 mls @ 223.25 mls/hr IV ONETIME ONE Stop: 05/19/21 10:14 Last Admin: 05/19/21 18:03 Dose: Not Given Documented by: Sodium Chloride (Normal Saline) Confirm Administered Dose 20 mls @ as directed .ROUTE .STK-MED ONE Stop: 05/19/21 09:45 Ketorolac Tromethamine (Ketorolac 30 Mg/Ml Sdv) 30 mg IVPUSH Q6H [facility] Stop: 05/20/21 11:01 Last Admin: 05/20/21 11:14 Dose: 30 mg Documented by: Miscellaneous Medication (Phenylephrine Hcl In 0.9% Nacl 1 Mg/10 Ml Syringe) Confirm Administered Dose 1 mg .ROUTE .STK-MED ONE Stop: 05/19/21 08:43 Morphine Sulfate (Morphine Pf 10 Mg/10 Ml Sdv) Confirm Administered Dose 10 mg .ROUTE .STK-MED ONE Stop: 05/19/21 08:41 Nalbuphine HCl (Nalbuphine 10 Mg/1 Ml Vial) 5 mg IVPUSH Q30M PRN PRN Reason: Itching Last Admin: 05/19/21 16:06 Dose: 5 mg Documented by: Nalbuphine HCl (Nalbuphine 10 Mg/1 Ml Vial) Confirm Administered Dose 10 mg .ROUTE .STK-MED ONE Stop: 05/19/21 11:44 Last Admin: 05/19/21 13:56 Dose: Not Given Documented by: Nalbuphine HCl (Nalbuphine 10 Mg/1 Ml Vial) Confirm Administered Dose 10 mg .ROUTE .STK-MED ONE Stop: 05/19/21 15:49 Last Admin: 05/19/21 17:14 Dose: Not Given Documented by: Ondansetron HCl (Ondansetron 4 Mg/2 Ml Sdv) Confirm Administered Dose 4 mg .ROUTE .STK-MED ONE Stop: 05/19/21 08:40 Ondansetron HCl (Ondansetron 4 Mg/2 Ml Sdv) Confirm Administered Dose 4 mg .ROUTE .STK-MED ONE Stop: 05/19/21 09:54 Oxytocin (Oxytocin 10 Units/1 Ml Sdv) Confirm Administered Dose 30 unit .ROUTE .STK-MED ONE Stop: 05/19/21 08:40 Ropivacaine (Ropivacaine 0.5% 5 Mg/Ml 30 Ml Sdv) Confirm Administered Dose 60 ml .ROUTE .STK-MED ONE Stop: 05/19/21 08:54 - Interaction Disposition, : Prospect in Room with Family Infant Interaction: Holding Infant Feeding: Breastfed ; Nursed Well Support Person: Significant Other - Recovery Exam Fundal Tone: Firm Fundal Level: 1 Fingerbreadths Below Umbilicus Fundal Placement: Midline Lochia Amount: Scant Lochia Color: Rubra/Red Perineum Description: Intact, Minimal Bruising/Swelling Episiotomy/Laceration: None Bladder Status: Voiding Urinary Elimination: Voided Other Urinary Elimination, : Indwelling catheter removed 529 - Exam General: Alert Lungs: Normal Respiratory Effort Cardiovascular: Regular Rate GI/Abdominal Exam: Soft, Tender (appropriate ) Extremities: Normal Range of Motion, Non-Tender, Pedal Edema (trace) Skin: Warm, Dry, Intact Wound/Incisions: Dressing Dry and Intact Neurological: No New Focal Deficit Psy/Mental Status: Normal Mood - Problem List Review Problem List Initiated/Reviewed/Updated: Yes - My Orders Last 24 Hours: My Active Orders 05/20/21 Lunch Regular Diet [DIET] 05/20/21 17:00 Ibuprofen [Motrin] 800 mg PO Q8H PRN - Assessment Assessment:: 26yo P2 s/p Primary for Low lying placenta . POD2 stable PPH after - resolved Anemia - asymptomatic - Plan Plan:: Pain control as needed vitamins with Iron Regular diet SCDs Anticipate discharge today pending maternal/ status. Discharge instructions reviewed.
[2021-05-21] MEDS: Prenatal Multivitamin with Calcium/Folic Acid/Iron Tab PO SCH (08:51)
[2021-05-21] MEDS: Docusate Sodium 100 MG Cap PO SCH ×2 (08:51→21:07)
[2021-05-22] MEDS: Ibuprofen 800 MG Tab PO PRN (05:02)
--- NOTE | 2021-05-22 09:10 | PCM.PNPP ---
- General Info Date of Service: 05/22/21 Admission Dx/Problem (Free Text): Low-lying placenta Subjective Update: Patient resting in bed during rounds. Stayed overnight due to weightloss and to work on breast feeding. Ambulating and voiding without difficulty. Tolerating regular diet. Lochia decreasing. - General Info Date of Service: 05/22/21 - Patient Data Vital Signs - Most Recent: Last Vital Signs Temp 96.6 F L 05/22/21 07:36 Pulse 73 05/22/21 07:36 Resp 18 05/22/21 07:36 BP 153/84 H 05/22/21 07:36 Pulse Ox 96 05/22/21 07:36 Weight - Most Recent: 295 lb Lab Results - Last 24 Hours: Laboratory Results - last 24 hr 05/16/21 Range/Units 10:45 RPR Non-Reac (Non-Reac) Med Orders - Current: Current Medications Albuterol (Albuterol 0.083% 2.5 Mg/3 Ml Neb Soln) 2.5 mg NEB ONETIME PRN PRN Reason: Wheezing Bisacodyl (Bisacodyl 10 Mg Supp) 10 mg RECTAL ONETIME PRN PRN Reason: Constipation Diphenhydramine HCl (Diphenhydramine 50 Mg/Ml Sdv) 12.5 mg IVPUSH Q2H PRN PRN Reason: Itching Diphenhydramine HCl (Diphenhydramine 50 Mg/Ml Sdv) 25 mg IVPUSH Q6H PRN PRN Reason: Itching or Nausea Docusate Sodium (Docusate Sodium 100 Mg Cap) 100 mg PO BID [facility] Last Admin: 05/21/21 21:07 Dose: 100 mg Documented by: Droperidol (Droperidol 5 Mg/2 Ml Sdv) 0.625 mg IVPUSH ONETIME PRN PRN Reason: Nausea/Vomiting Emollient Ointment (Lanolin 100% Cream 7 Gm Tube) 0 gm TOP ASDIRECTED PRN PRN Reason: Sore Nipples Last Admin: 05/20/21 05:09 Dose: 1 applic Documented by: Fentanyl (Fentanyl 100 Mcg/2 Ml Sdv) 50 mcg IVPUSH Q5M PRN PRN Reason: Pain (mild 1-3) Fentanyl (Fentanyl 100 Mcg/2 Ml Sdv) 50 mcg IVPUSH Q15M PRN PRN Reason: Pain (severe 7-10) Gentamicin Sulfate (Pharmacy To Dose - Gentamicin) 1 dose .XX ASDIRECTED [facility] Hydromorphone HCl (Hydromorphone 1 Mg/Ml Syringe) 1 mg IVPUSH Q10M PRN PRN Reason: Pain (moderate 4-6) Tranexamic Acid 1,000 mg/ (Sodium Chloride) 110 mls @ 660 mls/hr IV ONETIME PRN PRN Reason: Bleeding Ibuprofen (Ibuprofen 800 Mg Tab) 800 mg PO Q8H PRN PRN Reason: Cramping Last Admin: 05/22/21 05:02 Dose: 800 mg Documented by: Methylergonovine Maleate (Methylergonovine 0.2 Mg/1 Ml Amp) 0.2 mg IM ONETIME PRN PRN Reason: Excessive Vaginal Bleeding Last Admin: 05/19/21 12:36 Dose: 0.2 mg Documented by: Metoclopramide HCl (Metoclopramide 10 Mg/2 Ml Sdv) 10 mg IVPUSH ONETIME PRN PRN Reason: Nausea/Vomiting Metoclopramide HCl (Metoclopramide 10 Mg/2 Ml Sdv) 10 mg IVPUSH Q8H PRN PRN Reason: Nausea/Vomiting Last Admin: 05/19/21 17:27 Dose: 10 mg Documented by: Misoprostol (Misoprostol 200 Mcg Tab) 1,000 mcg RECTAL ONETIME PRN PRN Reason: excessive bleeding Last Admin: 05/19/21 13:34 Dose: 600 mcg Documented by: Naloxone HCl (Naloxone 0.4 Mg/Ml Sdv) 0.1 mg IVPUSH ASDIRECTED PRN PRN Reason: Respiratory Depression Ondansetron HCl (Ondansetron 4 Mg/2 Ml Sdv) 4 mg IVPUSH ONETIME PRN PRN Reason: Nausea/Vomiting Ondansetron HCl (Ondansetron 4 Mg/2 Ml Sdv) 4 mg IVPUSH Q6H PRN PRN Reason: Nausea Ondansetron HCl (Ondansetron 4 Mg/2 Ml Sdv) 4 mg IVPUSH Q4H PRN PRN Reason: Nausea/Vomiting Last Admin: 05/19/21 16:05 Dose: 4 mg Documented by: Oxycodone/Acetaminophen (Acetaminophen/Oxycodone 325-5 Mg Tab) 2 tab PO Q6H PRN PRN Reason: Pain (moderate 4-6) Oxycodone/Acetaminophen (Acetaminophen/Oxycodone 325-5 Mg Tab) 1 tab PO Q4H PRN PRN Reason: Pain (severe 7-10) Oxycodone/Acetaminophen (Acetaminophen/Oxycodone 325-5 Mg Tab) 2 tab PO Q4H PRN PRN Reason: Pain (severe 7-10) Prenat Multivit/Subscription Agent/Iron/Folic Ac ( Multivitamin With Calcium/Folic Acid/Iron Tab) 1 each PO DAILY [facility] Last Admin: 05/21/21 08:51 Dose: 1 each Documented by: Sodium Chloride (Sodium Chloride 0.9% 10 Ml Syringe) 10 ml FLUSH ASDIRECTED PRN PRN Reason: Keep Vein Open Sodium Chloride (Sodium Chloride 0.9% 2.5 Ml Syringe) 2.5 ml FLUSH ASDIRECTED PRN PRN Reason: Keep Vein Open Sodium Chloride (Sodium Chloride 0.9% 20 Ml Sdv) 10 ml IV ASDIRECTED PRN PRN Reason: IV Use Discontinued Medications Citric Acid/Sodium Citrate (Citric Acid/Sodium Citrate Solution 30 Ml Cup) 30 ml PO ONETIME ONE Stop: 05/19/21 09:02 Last Admin: 05/19/21 18:03 Dose: Not Given Documented by: Dexamethasone (Dexamethasone 4 Mg/Ml 5 Ml Mdv) Confirm Administered Dose 20 mg .ROUTE .STK-MED ONE Stop: 05/19/21 08:40 Ephedrine Sulfate (Ephedrine 50 Mg/Ml Sdv) Confirm Administered Dose 50 mg .ROUTE .STK-MED ONE Stop: 05/19/21 09:45 Fentanyl (Fentanyl 100 Mcg/2 Ml Sdv) Confirm Administered Dose 100 mcg .ROUTE .STK-MED ONE Stop: 05/19/21 08:41 Lactated Ringer's (Ringers, Lactated) 1,000 mls @ 500 mls/hr IV BOLUS [facility] Last Admin: 05/19/21 08:55 Dose: 999 mls/hr Documented by: Oxytocin/Sodium Chloride (Oxytocin 30 Unit In Ns 0.9% 500 Ml Premix) 30 unit in 500 mls @ 250 mls/hr IV TITRATE [facility] Last Admin: 05/19/21 12:35 Dose: 500 mls/hr Documented by: Gentamicin Sulfate 465 mg/ (Sodium Chloride) 111.625 mls @ 223.25 mls/hr IV ONETIME ONE Stop: 05/19/21 10:14 Last Admin: 05/19/21 18:03 Dose: Not Given Documented by: Sodium Chloride (Normal Saline) Confirm Administered Dose 20 mls @ as directed .ROUTE .STK-MED ONE Stop: 05/19/21 09:45 Lactated Ringer's (Ringers, Lactated) 1,000 mls @ 125 mls/hr IV ASDIRECTED [facility] Last Admin: 05/20/21 02:15 Dose: 125 mls/hr Documented by: Oxytocin/Lactated Ringer's (Pitocin In Lr 30 Units/500 Ml) 30 unit in 500 mls @ 125 mls/hr IV TITRATE [facility]; Protocol Ketorolac Tromethamine (Ketorolac 30 Mg/Ml Sdv) 30 mg IVPUSH Q6H [facility] Stop: 05/20/21 11:01 Last Admin: 05/20/21 11:14 Dose: 30 mg Documented by: Miscellaneous Medication (Phenylephrine Hcl In 0.9% Nacl 1 Mg/10 Ml Syringe) Confirm Administered Dose 1 mg .ROUTE .STK-MED ONE Stop: 05/19/21 08:43 Morphine Sulfate (Morphine 2 Mg/Ml Syringe) 2 mg IVPUSH Q10M PRN PRN Reason: Pain (severe 7-10) Morphine Sulfate (Morphine Pf 10 Mg/10 Ml Sdv) Confirm Administered Dose 10 mg .ROUTE .STK-MED ONE Stop: 05/19/21 08:41 Nalbuphine HCl (Nalbuphine 10 Mg/1 Ml Vial) 5 mg IVPUSH Q30M PRN PRN Reason: Itching Last Admin: 05/19/21 16:06 Dose: 5 mg Documented by: Nalbuphine HCl (Nalbuphine 10 Mg/1 Ml Vial) Confirm Administered Dose 10 mg .ROUTE .STK-MED ONE Stop: 05/19/21 11:44 Last Admin: 05/19/21 13:56 Dose: Not Given Documented by: Nalbuphine HCl (Nalbuphine 10 Mg/1 Ml Vial) Confirm Administered Dose 10 mg .ROUTE .STK-MED ONE Stop: 05/19/21 15:49 Last Admin: 05/19/21 17:14 Dose: Not Given Documented by: Ondansetron HCl (Ondansetron 4 Mg/2 Ml Sdv) Confirm Administered Dose 4 mg .ROUTE .STK-MED ONE Stop: 05/19/21 08:40 Ondansetron HCl (Ondansetron 4 Mg/2 Ml Sdv) Confirm Administered Dose 4 mg .ROUTE .STK-MED ONE Stop: 05/19/21 09:54 Oxytocin (Oxytocin 10 Units/1 Ml Sdv) Confirm Administered Dose 30 unit .ROUTE .STK-MED ONE Stop: 05/19/21 08:40 Oxytocin (Oxytocin 10 Units/1 Ml Sdv) 10 unit IM ASDIRECTED PRN PRN Reason: Excessive Vaginal Bleeding Ropivacaine (Ropivacaine 0.5% 5 Mg/Ml 30 Ml Sdv) Confirm Administered Dose 60 ml .ROUTE .STK-MED ONE Stop: 05/19/21 08:54 - Infant Interaction Infant Disposition, : in Room with Family Infant Interaction: Holding Infant Infant Feeding: Breastfed Infant; Nursed Well Support Person: Significant Other - Recovery Exam Fundal Tone: Firm Fundal Level: 1 Fingerbreadths Below Umbilicus Fundal Placement: Midline Lochia Amount: Scant Lochia Color: Rubra/Red Perineum Description: Intact, Minimal Bruising/Swelling Episiotomy/Laceration: None Bladder Status: Nonpalpable, Voiding Urinary Elimination: Voided Other Urinary Elimination, : Indwelling catheter removed 0530 - Exam General: Alert Lungs: Normal Respiratory Effort Cardiovascular: Regular Rate GI/Abdominal Exam: Soft, Non-Tender Extremities: Normal Range of Motion, Non-Tender, Pedal Edema (trace) Skin: Warm, Dry, Intact Wound/Incisions: Dressing Dry and Intact Neurological: No New Focal Deficit Psy/Mental Status: Normal Mood - Problem List Review Problem List Initiated/Reviewed/Updated: Yes - Assessment Assessment:: 26yo P2 s/p Primary for Low lying placenta . POD3 stable PPH after - resolved Anemia - asymptomatic - Plan Plan:: Pain control as needed vitamins with Iron Regular diet SCDs Anticipate discharge today pending maternal/ status. Discharge instructions reviewed.
[2021-05-22] MEDS: Docusate Sodium 100 MG Cap PO SCH (10:03)
[2021-05-22] MEDS: Prenatal Multivitamin with Calcium/Folic Acid/Iron Tab PO SCH (10:03)
== END 2021-05-22 12:45 | disposition home or self-care (01) | DRG 788 ==
LOC: MW.OB 08:01
PROVIDERS: ADMIT Obstetrics & Gynecology; ATTEND Obstetrics & Gynecology
PROC: 10D00Z1 Extraction of Products of Conception, Low, Open Approach (ICD-10-PCS; principal; 2021-05-19)
DX: O44.43 Low lying placenta NOS or without hemorrhage, third trimester (principal); Z3A.39 39 weeks gestation of pregnancy; O99.214 Obesity complicating childbirth; O99.02 Anemia complicating childbirth; D64.9 Anemia, unspecified; E66.01 Morbid (severe) obesity due to excess calories; M62.89 Other specified disorders of muscle; Z37.0 Single live birth; Z86.16 Personal history of COVID-19
CPT/HCPCS: 01961; 36415; 59025; 59409; 64488; 85014; 85018; 85027; 85384; 85610; 86592; 86850; 86900; 86901; A9270-GY; J1100; J1885; J2210; J2270; J2300; J2370; J2405; J2590; J2765; J2795; J3010; J7120

== ENCOUNTER 2022-07-18 20:27 | Emergency (ER) | payer MEDICAID ==
[2022-07-18 21:42] LABS: BLOOD UREA NITROGEN,BUN 14 mg/dL (7.0-18.0); CARBON DIOXIDE,CO2 30.7 mmol/L (21.0-32.0); CHLORIDE,CL 104 mmol/L (98-107); GLUCOSE RANDOM 85 mg/dL (74-106); POTASSIUM,K 4.1 mmol/L (3.5-5.1); SODIUM,NA 141 mmol/L (136-145)
[2022-07-18 21:44] LABS: ESTIMATED GFR 103 mL/min (>60)
== END 2022-07-18 22:20 | disposition home or self-care (01) ==
LOC: MW.ED 20:27
DX: T83.32XA Displacement of intrauterine contraceptive device, initial encounter (principal); Z91.040 Latex allergy status; Z88.0 Allergy status to penicillin
CPT/HCPCS: 36415; 76817; 76817-26; 80053; 81003; 84702; 85025; 86900; 86901; 99284

== ENCOUNTER 2023-10-24 19:55 | Emergency (ER) | payer MEDICAID | END 2023-10-24 21:31 | disposition home or self-care (01) | LOC: MW.ED 19:55 | DX: H66.92 Otitis media, unspecified, left ear (principal); J45.909 Unspecified asthma, uncomplicated; E66.9 Obesity, unspecified; F17.210 Nicotine dependence, cigarettes, uncomplicated; Z88.0 Allergy status to penicillin; Z91.040 Latex allergy status; Z79.899 Other long term (current) drug therapy; Z68.27 Body mass index [BMI] 27.0-27.9, adult | CPT/HCPCS: 99282; 99283 ==

== ENCOUNTER 2023-12-30 06:47 | Day surgery (SDC) | payer BC, MEDICAID ==
[~2023-12-30 06:47] MED LIST changes: -Acetaminophen/oxyCODONE 325-5 MG Tab PO PRN; -Albuterol 0.083% 2.5 MG/3 ML Neb Soln NEB PRN; -HYDROmorphone 1 MG/ML Syringe IVPUSH PRN; -Metoclopramide 10 MG/2 ML SDV IVPUSH PRN; -Morphine 2 MG/ML SYRINGE IVPUSH PRN; -Naloxone 0.4 MG/ML SDV IVPUSH PRN; -Ondansetron 4 MG/2 ML SDV IVPUSH PRN; +Sodium Chloride 0.9% 10 ML Syringe FLUSH PRN; +Sodium Chloride 0.9% 2.5 ML Syringe FLUSH PRN; +Sodium Chloride 0.9% 20 ML SDV IV PRN; +ceFAZolin 2 GM in Sodium Chloride 0.9% 50 ML IV ONE; -diphenhydrAMINE 50 MG/ML SDV IVPUSH PRN; -fentaNYL 100 MCG/2 ML SDV IVPUSH PRN
[2023-12-30] MEDS: Lactated Ringers 1,000 ML IV SCH (07:22)
[2023-12-30] MEDS ORDERED: Bupivacaine 0.5% 30 ML SDV ONE (07:25)
[2023-12-30] MEDS ORDERED: Lidocaine 1% 20 ML MDV ONE (07:25)
[2023-12-30] MEDS ORDERED: Propofol 200 MG/20 ML SDV ONE (07:29)
[2023-12-30] MEDS ORDERED: propofoL 50 ML ONE (07:29)
[2023-12-30] MEDS ORDERED: fentaNYL 100 MCG/2 ML SDV ONE (07:29)
[2023-12-30] MEDS ORDERED: Ondansetron 4 MG/2 ML SDV ONE (07:30)
[2023-12-30] MEDS ORDERED: Lidocaine 1% 5 ML VIAL ONE (07:30)
[2023-12-30] MEDS ORDERED: Dexamethasone 4 MG/ML 5 ML MDV ONE (07:30)
[2023-12-30] MEDS ORDERED: dexmedeTOMIDine HCl 200 MCG/2 ML SDV ONE (07:35)
[2023-12-30] MEDS ORDERED: Water For Injection, Sterile 20 ML ONE (07:35)
[2023-12-30] MEDS ORDERED: ceFAZolin 2 GM Vial ONE (08:01)
[2023-12-30] MEDS ORDERED: Metoclopramide 10 MG/2 ML SDV IVPUSH PRN (08:05)
[2023-12-30] MEDS ORDERED: droPERidol 5 MG/2 ML SDV IVPUSH PRN (08:05)
[2023-12-30] MEDS ORDERED: Albuterol 0.083% 2.5 MG/3 ML Neb Soln NEB PRN (08:05)
[2023-12-30] MEDS ORDERED: Naloxone 0.4 MG/ML SDV IVPUSH PRN (08:05)
[2023-12-30] MEDS ORDERED: Ondansetron 4 MG/2 ML SDV IVPUSH PRN (08:05)
[2023-12-30] MEDS ORDERED: fentaNYL 50 MCG/ML SDV IVPUSH PRN (08:05)
[2023-12-30] MEDS ORDERED: Morphine 2 MG/ML SYRINGE IVPUSH PRN (08:05)
[2023-12-30] MEDS ORDERED: HYDROmorphone 1 MG/ML Syringe IVPUSH PRN (08:05)
[2023-12-30] MEDS ORDERED: Phenylephrine HCl In 0.9% NaCl 1 MG/10 ML Syringe ONE (08:19)
== END 2023-12-30 10:49 | disposition home or self-care (01) ==
LOC: MW.SDS 06:47
PROVIDERS: ATTEND Surgery
DX: C50.911 Malignant neoplasm of unspecified site of right female breast (principal); J45.909 Unspecified asthma, uncomplicated; F17.210 Nicotine dependence, cigarettes, uncomplicated; Z91.040 Latex allergy status; Z88.0 Allergy status to penicillin; Z88.8 Allergy status to other drugs, medicaments and biological substances; Z79.899 Other long term (current) drug therapy
CPT/HCPCS: 36561; 71045; 76000; 81025; J0131; J0665; J0690; J1100; J1642; J2371; J2704; J3010; J7120; J2405; J3490

== ENCOUNTER 2024-01-02 15:02 | Emergency (ER) | payer BC, MEDICAID | END 2024-01-02 16:17 | disposition home or self-care (01) | LOC: MW.ED 15:02 | DX: Z48.812 Encounter for surgical aftercare following surgery on the circulatory system (principal); K21.9 Gastro-esophageal reflux disease without esophagitis; Z88.0 Allergy status to penicillin; Z91.040 Latex allergy status; Z75.8 Other problems related to medical facilities and other health care | CPT/HCPCS: 71045; 71045-26; 99283 ==

== ENCOUNTER 2024-01-29 09:30 | Emergency (ER) | payer BC, MEDICAID ==
[2024-01-29 09:55] LABS: APPEARANCE,URINE CLOUDY; BILIRUBIN,URINE NEGATIVE (NEGATIVE); COLOR,URINE YELLOW; GLUCOSE,URINE NEGATIVE (NEGATIVE); KETONES,URINE NEGATIVE (NEGATIVE); LEUKOCYTE ESTERASE,URINE SMALL (NEGATIVE); NITRITE,URINE NEGATIVE (NEGATIVE); OCCULT BLOOD,URINE LARGE (NEGATIVE); PH,URINE 6.5 (5.0-8.0); PROTEIN,URINE TRACE mg/dL (NEGATIVE); UROBILINOGEN,URINE 0.2 EU/dL (<2.0)
[2024-01-29 10:04] LABS: BACTERIA,URINE FEW (NEGATIVE); EPITHELIAL CELLS,URINE RARE (NONE-FEW); MUCUS,URINE LIGHT (NONE-MOD)
== END 2024-01-29 10:17 | disposition home or self-care (01) ==
LOC: MW.ED 09:30
DX: N39.0 Urinary tract infection, site not specified (principal); K21.9 Gastro-esophageal reflux disease without esophagitis; J45.909 Unspecified asthma, uncomplicated; Z79.899 Other long term (current) drug therapy; Z88.0 Allergy status to penicillin; Z91.040 Latex allergy status
CPT/HCPCS: 81001; 87086; 87088; 87186; 99284